=== PATIENT | female | born 1935 | race Caucasian/White ===

== ENCOUNTER → 2016-03-16 | Outpatient (CLI) | payer OTHER ==
[2016-03-16 18:09] LABS: BASO % 0.4 %; BASO ABS # 0.02 K/uL (0-0.2); COMPLETE YES; EOS % 2.6 %; HEMATOCRIT 34.5 % (37-47); IG% 0.4 %; LYMPH % 21.8 %; LYMPH ABS # 1.08 K/uL (1.2-3.4); MEAN CELL VOLUME 99.7 fL (80-100); MEAN CORPUSCULAR HEMOGLOBIN 33.2 pg (25-34); MEAN CORPUSCULAR HGB CONC 33.3 g/dl (32-36); MEAN PLATELET VOLUME 9.3 fL (7.4-10.4); MONO % 8.7 %; NEUT % 66.1 %; PLATELET COUNT 143 K/uL (130-400); RED BLOOD COUNT 3.46 M/uL (4.2-5.4); WHITE BLOOD COUNT 4.96 K/uL (4.8-10.8)
[2016-03-16 18:26] LABS: BLOOD UREA NITROGEN 29 mg/dl (7-18); BUN/CREATININE RATIO 22.6 (10-20); CARBON DIOXIDE 37 mmol/L (21-32); CHLORIDE 95 mmol/L (98-107); GLUCOSE 329 mg/dl (70-99); POTASSIUM 3.9 mmol/L (3.5-5.1); SODIUM 138 mmol/L (136-145)
[2016-03-16 18:36] LABS: BETA-HYDROXYBUTYRATE 1.32 mg/dL (0.2-2.81)
[2016-03-17 06:57] LABS: ESTIMATED AVERAGE GLUCOSE 183 mg/dl; HA1C FLAG Normal (Normal)
== END | disposition home or self-care (01) ==
LOC: C.LABMFLN 09:58
PROVIDERS: ATTEND Family Medicine
DX: E11.9 Type 2 diabetes mellitus without complications (principal)

== ENCOUNTER → 2016-06-23 | Outpatient (CLI) | payer OTHER ==
[2016-06-23 13:07] LABS: BASO % 0.3 %; BASO ABS # 0.02 K/uL (0-0.2); COMPLETE YES; EOS % 2.1 %; HEMATOCRIT 35.7 % (37-47); IG% 0.4 %; LYMPH % 15.8 %; LYMPH ABS # 1.06 K/uL (1.2-3.4); MEAN CELL VOLUME 100.6 fL (80-100); MEAN CORPUSCULAR HEMOGLOBIN 31.8 pg (25-34); MEAN CORPUSCULAR HGB CONC 31.7 g/dl (32-36); MEAN PLATELET VOLUME 9.4 fL (7.4-10.4); MONO % 7.9 %; NEUT % 73.5 %; PLATELET COUNT 192 K/uL (130-400); RED BLOOD COUNT 3.55 M/uL (4.2-5.4); WHITE BLOOD COUNT 6.69 K/uL (4.8-10.8)
[2016-06-23 13:15] LABS: INR 1.6 (0.9-1.1); PROTHROMBIN TIME (PATIENT) 17.4 SECONDS (9.0-12.0)
[2016-06-23 13:49] LABS: CALCIUM 9.6 mg/dl (8.5-10.1)
[2016-06-23 13:52] LABS: ALT/SGPT 18 U/L (12-78); BLOOD UREA NITROGEN 16 mg/dl (7-18); BUN/CREATININE RATIO 15.9 (10-20); CARBON DIOXIDE 37 mmol/L (21-32); CHLORIDE 99 mmol/L (98-107); CHOLESTEROL 187 mg/dl (0-200); CREATININE 0.99 mg/dl (0.60-1.20); GLUCOSE 231 mg/dl (70-99); POTASSIUM 3.8 mmol/L (3.5-5.1); SODIUM 142 mmol/L (136-145); TRIGLYCERIDES 153 mg/dl (0-150); VERY LOW DENSITY LIPOPROT CALC 31 mg/dl
[2016-06-23 13:55] LABS: ALKALINE PHOSPHATASE 100 U/L (45-117); AST/SGOT 16 U/L (15-37); CHOLESTEROL/HDL RATIO 2.6; HDL CHOLESTEROL 71 mg/dl; LDL CHOLESTEROL CALCULATED 85 mg/dl
[2016-06-23 14:34] LABS: ESTIMATED AVERAGE GLUCOSE 166 mg/dl; HA1C FLAG Normal (Normal)
== END | disposition home or self-care (01) ==
LOC: C.LABMFLN 11:35
PROVIDERS: ATTEND Family Medicine
DX: D64.9 Anemia, unspecified (principal); E11.9 Type 2 diabetes mellitus without complications; E78.5 Hyperlipidemia, unspecified; I63.9 Cerebral infarction, unspecified

== ENCOUNTER → 2017-03-13 | Outpatient (CLI) | payer OTHER ==
[2017-03-13 17:57] LABS: BASO % 0.2 %; BASO ABS # 0.01 K/uL (0-0.2); EOS % 2.5 %; EOS ABS # 0.15 K/uL (0-0.5); HEMATOCRIT 35.6 % (37-47); HEMOGLOBIN 11.1 g/dL (12.0-16.0); IG# 0.01 K/uL (0.00-0.02); LYMPH % 18.8 %; LYMPH ABS # 1.13 K/uL (1.2-3.4); MEAN CELL VOLUME 97.8 fL (80-100); MEAN CORPUSCULAR HEMOGLOBIN 30.5 pg (25-34); MEAN CORPUSCULAR HGB CONC 31.2 g/dl (32-36); MEAN PLATELET VOLUME 9.5 fL (7.4-10.4); MONO % 9.2 %; MONO ABS # 0.55 K/uL (0.11-0.59); NEUT % 69.1 %; NEUT ABS # 4.15 K/uL (1.4-6.5); PLATELET COUNT 157 K/uL (130-400); RED CELL DISTRIBUTION WIDTH CV 17.5 % (11.5-14.5); RED CELL DISTRIBUTION WIDTH SD 62.6 fL (36.4-46.3)
[2017-03-13 18:19] LABS: ALBUMIN 3.2 gm/dl (3.4-5.0); BLOOD UREA NITROGEN 12 mg/dl (7-18); CALCIUM 9.3 mg/dl (8.5-10.1); CARBON DIOXIDE 36 mmol/L (21-32); CREATININE 1.09 mg/dl (0.60-1.20); GLUCOSE 166 mg/dl (70-99); POTASSIUM 3.8 mmol/L (3.5-5.1); SODIUM 141 mmol/L (136-145)
[2017-03-14 07:03] LABS: HEMOGLOBIN A1C 6.5 % (4.5-5.6)
== END | disposition home or self-care (01) ==
LOC: C.LABMFLN 16:15
PROVIDERS: ATTEND Family Medicine
DX: I25.10 Atherosclerotic heart disease of native coronary artery without angina pectoris (principal); E11.9 Type 2 diabetes mellitus without complications; E03.9 Hypothyroidism, unspecified

== ENCOUNTER → 2017-06-05 | Outpatient (CLI) | payer OTHER ==
[2017-06-05 18:01] LABS: BASO % 0.2 %; BASO ABS # 0.01 K/uL (0-0.2); EOS % 2.9 %; EOS ABS # 0.12 K/uL (0-0.5); HEMATOCRIT 31.6 % (37-47); HEMOGLOBIN 9.6 g/dL (12.0-16.0); IG# 0.02 K/uL (0.00-0.02); LYMPH % 20.5 %; LYMPH ABS # 0.86 K/uL (1.2-3.4); MEAN CELL VOLUME 104.3 fL (80-100); MEAN CORPUSCULAR HEMOGLOBIN 31.7 pg (25-34); MEAN CORPUSCULAR HGB CONC 30.4 g/dl (32-36); MEAN PLATELET VOLUME 9.3 fL (7.4-10.4); MONO % 9.1 %; MONO ABS # 0.38 K/uL (0.11-0.59); NEUT % 66.8 %; PLATELET COUNT 188 K/uL (130-400); RED CELL DISTRIBUTION WIDTH CV 18.9 % (11.5-14.5); RED CELL DISTRIBUTION WIDTH SD 71.9 fL (36.4-46.3); WHITE BLOOD COUNT 4.19 K/uL (4.8-10.8)
[2017-06-05 18:31] LABS: ALBUMIN 3.1 gm/dl (3.4-5.0); BLOOD UREA NITROGEN 12 mg/dl (7-18); CARBON DIOXIDE 39 mmol/L (21-32); CREATININE 1.06 mg/dl (0.60-1.20); GLUCOSE 126 mg/dl (70-99); PHOSPHORUS 3.8 mg/dl (2.5-4.9); POTASSIUM 3.6 mmol/L (3.5-5.1); SODIUM 140 mmol/L (136-145)
[2017-06-06 06:25] LABS: HEMOGLOBIN A1C 5.8 % (4.5-5.6)
== END | disposition home or self-care (01) ==
LOC: C.LABMFLN 15:53
PROVIDERS: ATTEND Family Medicine
DX: E11.9 Type 2 diabetes mellitus without complications (principal)